=== PATIENT | female | born 1935 | race Caucasian/White ===

== ENCOUNTER 2018-04-05 09:50 | Day surgery (SDC) | payer MEDICARE, OTHER, SELFPAY ==
[2018-04-05] VITALS (8 sets, daily range): BP systolic 107–134; BP diastolic 61–79; PULSE 77–94; RESP 10–18; TEMP 36.1–36.8; O2SAT 98–100; BMI 27.1
--- NOTE | 2018-04-05 | PATH_ITS ---
[facility] Accession Number: [id number] . 01 Material submitted: . SMALL BOWEL BIOPSY . 01 Clinical history: . 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 02 Diagnosis: Small Bowel, Biopsy: Duodenal mucosa with no diagnostic abnormality. Negative for active inflammation, features of sprue, dysplasia or malignancy. MRV/04/07/2018 . 02 Electronically signed: . Dallas Burnette MD, PhD, Pathologist NPI- [id number] . 01 Gross description: . SMALL BOWEL BIOPSY: Received in formalin are multiple fragment(s) of gaspar, soft tissue measuring 0.7 x 0.3 x 0.3 cm in aggregate submitted entirely in 1 cassette(s) /CKI /CKI . 02 Pathologist provided ICD-10: R19.4 . 02 CPT . 656220 Performed at: 01 [facility] [address] [id number] MD Gilmer Felton MD Phone: [phone] Performed at: 02 [facility] [address] [place], [place] [id number] MD Dale Tyler MD Phone: [phone]
[2018-04-05] MEDS: SODIUM CHLORIDE 0.9% 1,000 ML 70 ML IV (10:22)
--- NOTE | 2018-04-05 11:38 | PM.HP.1 ---
History of Present Illness Date Patient Seen: 04/05/18 Chief complaint: colonoscopy egd [id number] Narrative: The patient is an 82-year-old female with a microcytic anemia and was found to be iron deficient. She was seen at our office on 02/28/2018. There has been no significant changes to her clinical condition since that visit. She has no evidence of active GI bleeding Patient History Family & Social History Social History: household members spouse Meds Home Medications Medication Instructions Recorded Confirmed Type albuterol sulfate [ProAir HFA] 2 puff INHALATION Q4-6H PRN 04/05/18 04/05/18 History celecoxib 100 mg PO DAILY 04/05/18 04/05/18 History ezetimibe [Zetia] 10 mg PO DAILY 04/05/18 04/05/18 History levothyroxine [Synthroid] 150 mcg PO DAILY 04/05/18 04/05/18 History lisinopril 10 mg PO DAILY 04/05/18 04/05/18 History metformin 1,000 mg PO BID 04/05/18 04/05/18 History pravastatin 40 mg PO DAILY 04/05/18 04/05/18 History Allergies Allergy/AdvReac Type Severity Reaction Status Date / Time acetaminophen [From Vicodin] Allergy Unknown Verified 04/05/18 10:11 hydrocodone [From Vicodin] Allergy Unknown Verified 04/05/18 10:11 Penicillins Allergy Unknown Verified 04/05/18 08:10 Sulfa (Sulfonamide Allergy Unknown Verified 04/05/18 08:10 Antibiotics) codeine AdvReac Unknown Verified 04/05/18 08:11 morphine AdvReac Unknown Verified 04/05/18 10:11 Review of Systems Review of Systems All systems reviewed & are unremarkable except as noted in HPI and below Exam Vital Signs (past 8 hours): - 04/05/18 10:13 Temperature 97.4 F L Pulse Rate 94 H Respiratory Rate 18 Blood Pressure 134/74 Pulse Oximetry 100 Oxygen Delivery Method Room Air Narrative Exam Narrative: General: Patient is overweight, not in apparent distress Cardiovascular: Regular rate and rhythm, no murmurs, rubs, or gallops; no evidence of edema; no palpable abdominal aortic aneurysm Gastrointestinal: Normoactive bowel sounds, soft, nontender, nondistended, no rebound tenderness, no hepatosplenomegaly, no evidence of hernia Assessment & Plan Plan: Assessment/Plan Narrative: 82-year-old female who is here due to iron deficiency anemia. She has no evidence of active GI bleeding. An upper endoscopy and colonoscopy are planned. Regarding the procedure(s), the risks and potential complications, benefits, and alternatives (including not doing the procedure) were discussed with the patient. The risks include but are not limited to bleeding, infection, perforation which may require surgical intervention, missed lesions, and adverse reactions to sedative medicines. After a question and answer period, the patient agreed to proceed with the procedure(s) and gives informed consent.
[2018-04-05] MEDS: TETRACAINE/BENZOCAINE/BUTAMBEN (CETACAINE) BOTTLE 1 SPRAY TOP (11:39)
--- NOTE | 2018-04-05 11:41 | PM.OP.ENDO ---
Operative Date/Time/Diagnoses Date of procedure: 04/05/18 Procedure Notes Procedure in detail: Surgeon: Jovany Almeida MD Procedure: Esophagogastroduodenoscopy with __ and colonoscopy with __ Preoperative diagnosis: Iron deficiency anemia secondary to chronic blood loss Postoperative diagnosis: Small hiatal hernia otherwise normal EGD; grade 2 internal hemorrhoids otherwise normal colonoscopy Medications: Conscious sedation using 6 mg IV of Midazolam and 125 mcg IV of Fentanyl (total for both procedures); 4 mg IV of midazolam and 50 mcg IV of fentanyl for EGD Preanesthesia Assessment An H and P was performed/updated and the Px?s ASA class is 2. The procedure was discussed in detail with the patient. The potential risks and complications including infection, bleeding, missed lesions, perforation, need for surgery in case of perforation, prolonged hospital stay, and were explained. A brief question and answer period was allotted and once all questions were answered, informed consent was obtained. The patient was brought back to the procedure room and placed on standard monitoring. The patient?s vital signs were monitored continuously throughout the entire procedure. Prior to starting, a timeout was performed to confirm the patient?s identity, allergies, medications, and procedure. Procedure in detail The patient was placed in left lateral decubitus position and a bite block was inserted. The tip of the upper endoscope was placed into the mouth and advanced without difficulty under direct visualization into the esophagus. Esophagus: The esophagus appeared normal Stomach: There was note of a small hiatal hernia otherwise the stomach appeared normal Duodenum: The duodenal mucosa appeared normal with no note of ulcerations. Random biopsies were taken to rule out celiac disease After the upper endoscopy, preparations were made for the colonoscopy. Once adequate sedation was obtained a SOSA was performed. On examination of the perineum there was noted to be some prolapse of the rectum which is consistent with her prior history. The digital rectal examination did not reveal any palpable lesions in the rectal vault. The tip of the colonoscope was placed in the anal canal and advanced without difficulty all the way to the cecum which was identified by the appendiceal orifice and the ileocecal valve. The left colon was noted to be very tortuous. The terminal ileum was intubated to a distance of 5 cm from the ileocecal valve and the mucosa appeared normal. The colonoscope was then brought back to the cecum and careful examination of all glynn of the colon was performed. The colonic mucosa appeared normal throughout the entire colon with no evidence of vascular ectasias. Retroflexion was performed in the rectum which revealed grade 2 internal hemorrhoids The patient tolerated the procedure well and will be brought back to the recovery area to be discharged once criteria are met. The prep was judged to be good/excellent and adequate to identify polyps less than 5 mm. The withdrawal time was 9 min. The total procedure time from initial sedation was 29 min. Complications There were no complications and estimated blood loss was minimal. Recommendations Resume previous diet Continue outpatient medications Follow-up pathology results Surveillance colonoscopy no longer warranted given current colonoscopy findings and patient's age. Follow-up at our office with Sylvia Maddox. Please call our office to make an appointment An emergency contact number was given to the patient for any complications related to the procedure
[2018-04-05] MEDS: MIDAZOLAM 5 MG/5 ML VIAL IV (12:01)
[2018-04-05] MEDS: fentaNYL 250 MCG/5 ML INJ IV (12:02)
--- NOTE | 2018-04-05 12:19 | PM.DS.1 ---
History of Present Illness Chief complaint: colonoscopy egd [id number] Narrative: The patient is an 82-year-old female with a microcytic anemia and was found to be iron deficient. She was seen at our office on 02/28/2018. There has been no significant changes to her clinical condition since that visit. She has no evidence of active GI bleeding Discharge Providers Primary care physician: Natalia Guerrero MD Discharge provider: Jovany Almeida MD Exam Vital Signs (past 8 hours): - 04/05/18 10:13 04/05/18 12:11 Temperature 97.4 F L 97.0 F L Pulse Rate 94 H 83 Respiratory Rate 18 10 L Blood Pressure 134/74 133/79 Pulse Oximetry 100 98 Oxygen Delivery Method Room Air Narrative Exam Narrative: General: Patient is overweight, not in apparent distress Cardiovascular: Regular rate and rhythm, no murmurs, rubs, or gallops; no evidence of edema; no palpable abdominal aortic aneurysm Gastrointestinal: Normoactive bowel sounds, soft, nontender, nondistended, no rebound tenderness, no hepatosplenomegaly, no evidence of hernia Discharge Plan Discharge Plan Patient Disposition: Home Discharge Med Rec/Prescriptions Prescriptions: Continue metformin 1,000 mg Tablet 1,000 mg PO BID RF: 0 lisinopril 10 mg Tablet 10 mg PO DAILY RF: 0 levothyroxine [Synthroid] 150 mcg Tablet 150 mcg PO DAILY RF: 0 albuterol sulfate [ProAir HFA] 90 mcg/actuation Hfa Aerosol Inhaler 2 puff INHALATION Q4-6H PRN (Reason: Shortness Of Breath) RF: 0 ezetimibe [Zetia] 10 mg Tablet 10 mg PO DAILY RF: 0 celecoxib 100 mg PO DAILY RF: 0 pravastatin 40 mg PO DAILY RF: 0 Discharge Orders: Discharge (Order); Ordered 04/05/18 Ordered By: Jovany Almeida Provider Discharge Instructions Diet: Diet as Tolerated Visit Report/Discharge Packet Stand Alone Forms: Surgery Discharge Discharge Data Primary Care Provider: Natalia Guerrero Attending Provider: Jovany Almeida
== END 2018-04-05 13:25 | disposition home or self-care (01) ==
PROVIDERS: PCP Family Medicine; Visit Provider Internal Medicine Gastroenterology
PROC: 0DJ08ZZ Inspection of Upper Intestinal Tract, Via Natural or Artificial Opening Endoscopic (ICD-10-PCS; CPT 43235; principal; 2018-04-05 11:00)
PROC: 0DJD8ZZ Inspection of Lower Intestinal Tract, Via Natural or Artificial Opening Endoscopic (ICD-10-PCS; CPT 45378; 2018-04-05 11:00)
DX: D50.0 Iron deficiency anemia secondary to blood loss (chronic) (principal); K44.9 Diaphragmatic hernia without obstruction or gangrene; K64.1 Second degree hemorrhoids; R19.4 Change in bowel habit
CPT/HCPCS: 43239; 45378; 88305; J2250; J3010

== ENCOUNTER 2019-05-01 09:50 | Emergency (ER) | payer MEDICARE, OTHER, SELFPAY ==
[2019-05-01 10:00] VITALS: BP 138/80; PULSE 112; RESP 16; TEMP 37; O2SAT 94; BMI 23.7
--- NOTE | 2019-05-01 10:14 | ED.SOB ---
HPI - SOB/Dyspnea General Chief Complaint: Upper Respiratory Symptoms Stated Complaint: hard to breathe/spit up blood/cough/headaches Time Seen by Provider: 05/01/19 09:57 Source: patient Mode of arrival: Ambulatory Limitations: no limitations History of Present Illness HPI Narrative: 83-year-old female nonsmoker with a history of hyperlipidemia presents with her in the chief complaint of at least 1 week of ongoing and worsening cough with shortness of breath and hemoptysis. She feels increasingly worse despite the use of outpatient antibiotics and bronchodilators. She had been seen by her primary care provider in put on a Z-Angel about a week ago with minimal improvement. She was seen again yesterday and started on doxycycline. She admits to chills but denies any specific fever. She has had no nausea or vomiting. She denies any recent travel, injury, surgery, history of cancer or other risk for pulmonary embolism. She denies lower extremity swelling, pain MD Complaint: shortness of breath and cough Onset (ago): day(s) Severity: moderate Consistency/Duration: constant Relieving factors: nothing Exacerbating factors: lying flat and exertion Associated symptoms: cough, wheezing and sputum production Treatment prior to arrival: bronchodilator Related Data Home Medications Medication Instructions Recorded Confirmed albuterol sulfate [ProAir HFA] 2 puff INHALATION Q4-6H PRN 04/05/18 05/01/19 ezetimibe [Zetia] 10 mg PO QPM 04/05/18 05/01/19 levothyroxine [Synthroid] 150 mcg PO SUMOTUWETHFR 04/05/18 05/01/19 lisinopril 10 mg PO QPM 04/05/18 05/01/19 metformin 1,000 mg PO BID 04/05/18 05/01/19 pravastatin 40 mg PO QPM 04/05/18 05/01/19 Aller Clear [place] 4 spray INTRANASAL PRN PRN 05/01/19 05/01/19 Antacids 1 ea PO PRN PRN 05/01/19 05/01/19 Brotin 1 tab PO DAILY 05/01/19 05/01/19 Hylands Leg Cramps W Quinine 3 tab PO PRN PRN 05/01/19 05/01/19 Hylands Restless Legs 3 tab PO PRN PRN 05/01/19 05/01/19 Krill Oil 750mg 750 mg PO QAM 05/01/19 05/01/19 Melatonin Lozenge 1 ea PO PRN PRN 05/01/19 05/01/19 Move Free 1 tab PO BID 05/01/19 05/01/19 Pre And Probioitic 2 tab PO DAILY 05/01/19 05/01/19 acetaminophen 500 mg PO PRN PRN 05/01/19 05/01/19 aspirin 81 mg PO QPM 05/01/19 05/01/19 benzonatate 100 mg PO TID PRN 05/01/19 05/01/19 bismuth subsalicylate 262 mg PO PRN PRN 05/01/19 05/01/19 [Pepto-Bismol] celecoxib 100 mg PO BID 05/01/19 05/01/19 coenzyme Q10 [CoQ-10] 100 mg PO QPM 05/01/19 05/01/19 diclofenac sodium 0 g TOPICAL QID 05/01/19 05/01/19 doxycycline monohydrate 100 mg PO BID 05/01/19 05/01/19 ferrous sulfate [Iron (ferrous 325 mg PO QPM 05/01/19 05/01/19 sulfate)] fluticasone propion-salmeterol 1 inh INHALATION BID 05/01/19 05/01/19 [Advair Diskus] glipizide 2.5 mg PO DAILY 05/01/19 05/01/19 loratadine 10 mg PO DAILY 05/01/19 05/01/19 magnesium 250 mg PO QPM 05/01/19 05/01/19 polyethylene glycol 3350 [Miralax] 17 g PO DAILY PRN 05/01/19 05/01/19 Allergies Allergy/AdvReac Type Severity Reaction Status Date / Time acetaminophen [From Vicodin] Allergy Unknown Verified 04/05/18 10:11 hydrocodone [From Vicodin] Allergy Unknown Verified 04/05/18 10:11 Penicillins Allergy Unknown Verified 04/05/18 08:10 Sulfa (Sulfonamide Allergy Unknown Verified 04/05/18 08:10 Antibiotics) codeine AdvReac Unknown Verified 04/05/18 08:11 morphine AdvReac Unknown Verified 04/05/18 10:11 Review of Systems Constitutional Constitutional: Denies chills, Denies fatigue, Denies fever(s), Denies frequent falls, Denies lethargy and Denies weakness Eyes Eyes: Denies change in vision, Denies eye discharge, Denies irritation and Denies loss of vision ENT Ears, Nose, Mouth, and Throat: Denies change in voice, Denies dizziness, Denies neck pain, Denies sore throat and Denies throat swelling Cardiovascular Cardiovascular: Denies chest pain, Denies irregular heart rhythm, Denies lightheadedness, Denies palpitations, Reports dyspnea, Reports dyspnea on exertion and Denies orthopnea Respiratory Respiratory: Reports cough, Reports dyspnea, Reports dyspnea on exertion and Reports wheezing Gastrointestinal Gastrointestinal: Denies abdominal pain, Denies change in bowel habits, Denies diarrhea, Denies nausea and Denies vomiting Genitourinary Genitourinary: Denies hematuria, Denies flank pain, Denies urinary incontinence and Denies urinary urgency Musculoskeletal Musculoskeletal: Denies back pain, Denies muscle weakness, Denies neck pain, Denies numbness and Denies tingling Integumentary/Breasts Skin/Breast: Denies pruritus, Denies erythema, Denies rash and Denies wounds Neurologic Neurologic: Denies behavioral changes, Denies confusion, Denies dizziness, Denies frequent falls, Denies loss of vision, Denies numbness, Denies tingling and Denies weakness Psychiatric Psychiatric: Denies anxiety, Denies behavioral changes, Denies confusion, Denies depression, Denies homicidal ideation and Denies suicidal ideation Endocrine Endocrine: Denies fatigue, Denies flushing and Denies palpitations Hematologic/Lymphatic Hematologic/Lymphatic: Denies easy bruising Allergic/Immunologic Allergic/Immunologic: Denies urticaria, Denies throat swelling and Reports wheezing PFSH Social History household members: spouse Smoking Status: Former smoker Social History household members: spouse Smoking Status: Former smoker Exam Narrative Exam Narrative: GENERAL: [83] year old patient appears stated age. Well-nourished, well-developed patient, moderate distress, clearly not feeling well. HEAD: Atraumatic. Normocephalic. EYES: Pupils equal round and reactive. Extraocular motions intact. No scleral icterus. No injection or drainage. ENT: Nose without bleeding, purulent drainage. Throat without erythema, tonsillar hypertrophy or exudate. Airway patent. NECK: Trachea midline. Non tender CARDIOVASCULAR: tachycardic but regular rhythm without murmurs, gallops, or rubs. RESPIRATORY: Increased work of breathing, expiratory wheeze, faint crackles in bases GASTROINTESTINAL: Abdomen soft, non-tender, nondistended. EXTREMITIES: No edema or joint tenderness. BACK: Nontender without deformity or crepitance. No flank tenderness. NEURO: AOx3. SKIN: No rash or erythema of visible areas Initial Vital Signs Initial Vital Signs: Vital Signs Temperature 98.6 F 05/01/19 10:00 Pulse Rate 112 H 05/01/19 10:00 Respiratory Rate 16 05/01/19 10:00 Blood Pressure 138/80 05/01/19 10:00 Pulse Oximetry 94 05/01/19 10:00 Course Orders Ordered: ED Orders 05/01/19 10:14 Consult to Respiratory Therapy Evaluate & Treat EKG-12 Lead Stat 05/01/19 10:15 XR chest 2V Stat 05/01/19 11:00 B Type Natriuretic Peptide Stat Basic Metabolic Panel Stat Complete Blood Count AUTO DIFF Stat Lactate (Lactic Acid) Stat Magnesium Stat Partial Thromboplastin Time Stat Procalcitonin Stat Prothrombin Time INR Stat Troponin & CK Cardiac Panel Stat 05/01/19 11:55 Blood Culture Stat 05/01/19 12:12 CT angio chest PE protocol Stat Discontinued Medications Albuterol/Ipratropium (Duoneb) 3 ml INH NOW ONE Stop: 05/01/19 10:15 Last Admin: 05/01/19 10:18 Dose: 3 ml Documented by: CAROL Sodium Chloride (Normal Saline 0.9%) 1,000 mls @ 150 mls/hr IV CONT ANGI Last Infusion: 05/01/19 15:17 Dose: 0 mls/hr Documented by: Admin: 05/01/19 11:14 Dose: 150 mls/hr Documented by: [email or web address] Vital Signs Vital signs: Vital Signs - 8 hr 05/01/19 11:36 05/01/19 13:00 05/01/19 14:00 Pulse Rate 83 95 H 94 H Respiratory Rate 11 L 21 14 Blood Pressure Blood Pressure [Left Arm] 122/64 111/72 118/71 Pulse Oximetry 98 96 99 05/01/19 15:18 Pulse Rate 86 Respiratory Rate 12 Blood Pressure 126/77 Blood Pressure [Left Arm] Pulse Oximetry 97 MDM - SOB/Dyspnea Lab Data Result diagrams: 05/01/19 11:00 05/01/19 11:00 Labs: Lab Results 05/01/19 05/01/19 05/01/19 Range/Units 11:00 11:00 11:00 WBC 5.7 (4.5-11.0) X10^3/uL RBC 4.54 (4.0-5.2) X10^6/uL Hgb 13.3 (12.0-16.0) g/dL Hct 40.1 (36-46) % MCV 88.3 (80-100) fL MCH 29.2 (26-34) PG MCHC 33.1 (30-36) % RDW 14.4 (11.6-14.8) % Plt Count 247 (150-400) X10^3/uL Neut % (Auto) 48.6 L (50-75) % Lymph % (Auto) 28.2 (25-40) % [place] % (Auto) 11.5 (3-14) % Eos % (Auto) 10.6 H (2-4) % Baso % (Auto) 1.1 (0-2) % Neut # (Auto) 2800 (2898-7435) /uL Lymph # (Auto) 1600 (3502-2672) /uL [place] # (Auto) 700 (0-900) /uL Eos # (Auto) 600 H (0-450) /uL Baso # (Auto) 100 (0-100) /uL PT 12.2 (10.1-12.7) SECONDS INR 1.1 (0.9-1.3) APTT 38 H (26.4-36.2) SECONDS Sodium 139 (137-145) mmol/L Potassium 4.4 (3.4-5.1) mmol/L Chloride 102 (98-107) mmol/L Carbon Dioxide 27 (22-32) mmol/L BUN 14 (7-17) mg/dL Creatinine 0.60 (0.52-1.04) mg/dL Estimated GFR > 60.0 (>60) mL/min BUN/Creatinine Ratio 23.3 H (6-22) Glucose 185 H (80-110) mg/dL Lactate (0.7-2.1) mmol/L Calcium 9.9 (8.4-10.2) mg/dL Magnesium 1.4 L (1.6-2.3) mg/dL Total Creatine Kinase 76 (30-135) U/L CK-MB (CK-2) TNP CK-MB (CK-2) Rel Index TNP Troponin I < 0.012 (0.01-0.034) ng/mL B-Natriuretic Peptide < 100 (<100) Procalcitonin (<0.5) ng/mL 05/01/19 05/01/19 Range/Units 11:00 11:00 WBC (4.5-11.0) X10^3/uL RBC (4.0-5.2) X10^6/uL Hgb (12.0-16.0) g/dL Hct (36-46) % MCV (80-100) fL MCH (26-34) PG MCHC (30-36) % RDW (11.6-14.8) % Plt Count (150-400) X10^3/uL Neut % (Auto) (50-75) % Lymph % (Auto) (25-40) % [place] % (Auto) (3-14) % Eos % (Auto) (2-4) % Baso % (Auto) (0-2) % Neut # (Auto) (9703-0686) /uL Lymph # (Auto) (7642-4209) /uL [place] # (Auto) (0-900) /uL Eos # (Auto) (0-450) /uL Baso # (Auto) (0-100) /uL PT (10.1-12.7) SECONDS INR (0.9-1.3) APTT (26.4-36.2) SECONDS Sodium (137-145) mmol/L Potassium (3.4-5.1) mmol/L Chloride (98-107) mmol/L Carbon Dioxide (22-32) mmol/L BUN (7-17) mg/dL Creatinine (0.52-1.04) mg/dL Estimated GFR (>60) mL/min BUN/Creatinine Ratio (6-22) Glucose (80-110) mg/dL Lactate 1.6 (0.7-2.1) mmol/L Calcium (8.4-10.2) mg/dL Magnesium (1.6-2.3) mg/dL Total Creatine Kinase (30-135) U/L CK-MB (CK-2) CK-MB (CK-2) Rel Index Troponin I (0.01-0.034) ng/mL B-Natriuretic Peptide (<100) Procalcitonin < 0.05 (<0.5) ng/mL Urine Dip Bedside Urine Glucose Negative Bedside Urine Bilirubin - Negative Bedside Urine Ketone - Negative Urine Specific [place] 1.005 Bedside Urine Occult Blood - Negative Bedside Urine pH 6.5 Bedside Urine Protein - Negative Bedside Urine Urobilinogen - Negative Bedside Urine Nitrite - Negative Bedside Urine Leukocytes - Negative Esterase Critical Care Time Critical Care Time Critical Care Time: Yes Total Critical Care Time: 30 Attestation: The high probability of a clinically significant, sudden or life threatening deterioration of the [Vascular] system(s) required my full and direct attention, intervention and personal management. The aggregate critical care time was [30] minutes. This time is in addition to time spent performing reported procedures but includes the following: [x] Data Review and interpretation [x] Patient assessment and monitoring of vital signs [x] Documentation [x] Medication orders and management Discharge Plan Departure Patient Disposition: Home Clinical Impression: Atypical pneumonia Upper respiratory infection Qualifiers: URI type: unspecified viral URI Qualified Code(s): J06.9 - Acute upper respiratory infection, unspecified Discharge Date/Time: 05/01/19 15:27 Activity Restrictions/Additional Instructions: *You have been diagnosed with [atypical pneumonia versus viral upper respiratory infection] *What to do: * continue to take medications as directed *Follow up with your primary care provider in 2-3 days, call for an appointment. Let them know you were seen in the Emergency Department and that we ask that you be seen in follow up *Return to ER if you should have any new, worsening or concerning symptoms Prescriptions: No Action fluticasone propion-salmeterol [Advair Diskus] 250-50 mcg/dose blister with device 1 inh INHALATION BID RF: 0 benzonatate 100 mg capsule 100 mg PO TID PRN (Reason: Cough) RF: 0 glipizide 2.5 mg tablet extended release 24hr 2.5 mg PO DAILY RF: 0 celecoxib 100 mg capsule 100 mg PO BID RF: 0 diclofenac sodium 1 % gel 0 g TOPICAL QID RF: 0 doxycycline monohydrate 100 mg capsule 100 mg PO BID RF: 0 Aller Clear [place] 4 spray intranasal PRN PRN (Reason: Allergy Symptoms) RF: 0 Antacids 1 ea PO PRN PRN (Reason: Indigestion) RF: 0 aspirin 81 mg Tablet,Delayed Release (Dr/Ec) 81 mg PO QPM RF: 0 ferrous sulfate [Iron (ferrous sulfate)] 325 mg (65 mg iron) Tablet 325 mg PO QPM RF: 0 bismuth subsalicylate [Pepto-Bismol] 262 mg/15 mL Suspension 262 mg PO PRN PRN (Reason: as directed) RF: 0 magnesium 250 mg Tablet 250 mg PO QPM RF: 0 polyethylene glycol 3350 [Miralax] 17 gram/dose Powder 17 g PO DAILY PRN (Reason: Constipation) RF: 0 loratadine 10 mg Tablet 10 mg PO DAILY RF: 0 coenzyme Q10 [CoQ-10] 100 mg Capsule 100 mg PO QPM RF: 0 Brotin 1 tab PO DAILY RF: 0 Hylands Leg Cramps W Quinine 3 tab PO PRN PRN (Reason: leg cramps) RF: 0 Hylands Restless Legs 3 tab PO PRN PRN (Reason: resltess legs) RF: 0 Krill Oil 750mg 750 mg PO QAM RF: 0 Melatonin Lozenge 1 ea PO PRN PRN (Reason: Sleep) RF: 0 Move Free 1 tab PO BID RF: 0 Pre And Probioitic 2 tab PO DAILY RF: 0 acetaminophen 500 mg Tablet 500 mg PO PRN PRN (Reason: pain) RF: 0 pravastatin 40 mg Tablet 40 mg PO QPM RF: 0 metformin 1,000 mg Tablet 1,000 mg PO BID RF: 0 lisinopril 10 mg Tablet 10 mg PO QPM RF: 0 levothyroxine [Synthroid] 150 mcg Tablet 150 mcg PO SUMOTUWETHFR RF: 0 albuterol sulfate [ProAir HFA] 90 mcg/actuation Hfa Aerosol Inhaler 2 puff INHALATION Q4-6H PRN (Reason: Shortness Of Breath) RF: 0 ezetimibe [Zetia] 10 mg Tablet 10 mg PO QPM RF: 0 Referrals: Ian Carter DO [Primary Care Provider] -
--- NOTE | 2019-05-01 10:15 | DI.RAD.S_ITS ---
PROCEDURE: XR CHEST 2V INDICATIONS: SOB, cough, hemoptysis TECHNIQUE: 2 views of the chest were acquired. COMPARISON: None. FINDINGS: Surgical changes and devices: None. Lungs and pleura: Lungs are clear. No pleural effusions or pneumothorax. Mediastinum: Mediastinal contours are normal. Heart size is normal. Bones and chest wall: No suspicious bony abnormalities. Soft tissues appear unremarkable. IMPRESSION: No acute cardiopulmonary disease process. Dictated by: Cassie Castaneda MD, PhD on 05/01/2019 at 11:44 Approved by: Cassie Castaneda MD, PhD on 05/01/2019 at 11:45
[2019-05-01 10:18] VITALS: PULSE 102; RESP 12; O2SAT 98
[2019-05-01] MEDS: ALBUTEROL/IPRATROPIUM 3 ML AMPUL INH (10:18)
[2019-05-01] MEDS: SODIUM CHLORIDE 0.9% 1,000 ML 150 ML IV (11:14)
[2019-05-01 11:26] LABS: Add Manual Diff / Slide Review NO; Basophils Absolute Auto 100 /uL (0-100); Basophils Percent Auto 1.1 % (0-2); Eosinophils Absolute Auto 600 /uL (0-450); Eosinophils Percent Auto 10.6 % (2-4); Hematocrit 40.1 % (36-46); Hemoglobin 13.3 g/dL (12.0-16.0); INR 1.1 (0.9-1.3); Lymphocytes Absolute Auto 1600 /uL (1100-4500); Lymphocytes Percent Auto 28.2 % (25-40); Mean Corpuscular HGB Conc 33.1 % (30-36); Mean Corpuscular Hemoglobin 29.2 PG (26-34); Mean Corpuscular Volume 88.3 fL (80-100); Monocytes Absolute Auto 700 /uL (0-900); Monocytes Percent Auto 11.5 % (3-14); Neutrophils Absolute Auto 2800 /uL (1500-7000); Neutrophils Percent Auto 48.6 % (50-75); Platelet Count 247 X10^3/uL (150-400); Prothrombin Time 12.2 SECONDS (10.1-12.7); Red Blood Cell Count 4.54 X10^6/uL (4.0-5.2); Red Cell Distribution Width 14.4 % (11.6-14.8); White Blood Cell Count 5.7 X10^3/uL (4.5-11.0)
[2019-05-01 11:28] LABS: PTT Partial Thromboplastin Tim 38 SECONDS (26.4-36.2)
[2019-05-01 11:31] LABS: BUN Creatinine Ratio 23.3 (6-22); Blood Urea Nitrogen 14 mg/dL (7-17); Calcium 9.9 mg/dL (8.4-10.2); Carbon Dioxide 27 mmol/L (22-32); Chloride 102 mmol/L (98-107); Creatine Kinase 76 U/L (30-135); Estimated Glomerular Filt Rate > 60.0 mL/min (>60); Glucose 185 mg/dL (80-110); HEMOLYSIS < 15 (0-50); Lactate (Lactic Acid) 1.6 mmol/L (0.7-2.1); Magnesium 1.4 mg/dL (1.6-2.3); Potassium 4.4 mmol/L (3.4-5.1); Sodium 139 mmol/L (137-145)
[2019-05-01 11:36] VITALS: BP 122/64; PULSE 83; RESP 11; O2SAT 98
[2019-05-01 11:40] LABS: B Type Natriuretic Peptide < 100 (<100)
[2019-05-01 11:43] LABS: Troponin I < 0.012 ng/mL (0.01-0.034)
[2019-05-01 11:52] LABS: Procalcitonin < 0.05 ng/mL (<0.5)
--- NOTE | 2019-05-01 12:12 | DI.CT.S_ITS ---
PROCEDURE: CT ANGIO CHEST PE PROTOCOL INDICATIONS: SOB< hypoxia, tachycardia, hemoptysis TECHNIQUE: After the administration of intravenous contrast, 2 mm thick sections acquired from the pulmonary apices to the posterior costophrenic angles. 3-dimensional maximum intensity projection (MIP) coronal and sagittal reformats were then acquired through the thorax. For radiation dose reduction, the following was used: automated exposure control, adjustment of mA and/or kV according to patient size. COMPARISON: None. FINDINGS: Image quality: Excellent. Pulmonary arteries: Pulmonary arteries are normal in size, and demonstrate no intraluminal filling defects to suggest central pulmonary embolism. Lungs and pleura: Biapical scarring is seen. Scattered scarring/atelectasis is also seen in periphery of bilateral lung ashraf. No focal infiltrate is seen.. No pleural effusions or pneumothorax. Central and peripheral airways are patent. Mediastinum: Heart size is enlarged, without pericardial effusion. No mediastinal or hilar adenopathy by size criteria. Small lymph nodes are seen scattered in mediastinum and bilateral hilar region measures up to 6 mm in short axis diameter. Mild atherosclerotic calcifications are seen in coronary vessels and thoracic aorta Thoracic aorta is normal in caliber and enhancement. Esophagus is normal in caliber, without hiatal hernia. Bones and chest wall: No suspicious bony lesions. 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 No gross acute compression fracture or spondylolisthesis. Thyroid gland is within normal limits. No axillary or supraclavicular adenopathy. Abdomen: Visualized upper abdominal solid organs appear normal in the early arterial phase of enhancement. IMPRESSION: 1. No evidence of pulmonary emboli. No thoracic aortic aneurysm or dissection. 2. Subcentimeter lymph nodes in iastinum and bilateral hilar region. No lymphadenopathy. 3. Cardiomegaly, no pericardial effusion. 4. Biapical scarring and scattered bilateral scarring/atelectasis. No pleural effusion or pneumothorax. Airway is patent. Dictated by: Royer Monk M.D. on 05/01/2019 at 12:28 Approved by: Royer Monk M.D. on 05/01/2019 at 12:36
[2019-05-01 13:00] VITALS: BP 111/72; PULSE 95; RESP 21; O2SAT 96
[2019-05-01 14:00] VITALS: BP 118/71; PULSE 94; RESP 14; O2SAT 99
[2019-05-01 15:18] VITALS: BP 126/77; PULSE 86; RESP 12; O2SAT 97
== END 2019-05-01 15:27 | disposition home or self-care (01) ==
PROVIDERS: Emergency Provider Emergency Medicine; PCP Family Medicine
DX: J18.9 Pneumonia, unspecified organism (principal); J06.9 Acute upper respiratory infection, unspecified; R00.0 Tachycardia, unspecified
CPT/HCPCS: 36415; 71046; 71275; 80048; 81003; 82550; 83605; 83735; 83880; 84145; 84484; 85025; 85610; 85730; 87040; 93005; 94640; 96360; 96361; 99283; 99291; Q9967

== ENCOUNTER → 2023-12-27 14:51 | Outpatient (CLI) | payer MEDICARE, OTHER, SELFPAY | PROVIDERS: PCP Family Medicine; Referring Provider Internal Medicine Critical Care Medicine; Visit Provider Internal Medicine Critical Care Medicine | DX: R63.4 Abnormal weight loss (principal); R05.3 Chronic cough; F17.210 Nicotine dependence, cigarettes, uncomplicated; R94.2 Abnormal results of pulmonary function studies | CPT/HCPCS: 94060; 94729 ==